=== PATIENT | female | born 1985 | race Caucasian/White ===

== ENCOUNTER 2019-05-22 08:57 | Emergency (ER) | payer OTHER ==
[2019-05-22 09:07] VITALS: Wt 75.0 kg
[2019-05-22 10:51] VITALS: BP 133/86
== END 2019-05-22 11:00 | disposition home or self-care (01) ==
LOC: D.ER 08:57
DX: S61.451A Open bite of right hand, initial encounter (principal); W54.0XXA Bitten by dog, initial encounter; Y93.9 Activity, unspecified; Y92.9 Unspecified place or not applicable